=== PATIENT | female | born 1985 | race Native Hawaiian/Other Pacific Islander ===

== ENCOUNTER 2016-12-12 17:06 | Emergency (ER) | payer OTHER ==
[~2016-12-12] VITALS: Ht 167.6 cm; Wt 79.4 kg
[2016-12-12 18:24] LABS: PLATELET COUNT 266 K/uL (152-353)
[2016-12-12 18:34] LABS: POTASSIUM 3.9 mmol/L (3.6-5.2); SODIUM 136 mmol/L (136-145)
== END 2016-12-15 18:25 | disposition other institution (70) ==
LOC: ED 17:06
PROVIDERS: Emergency Medicine
DX: R45.851 Suicidal ideations (principal); F32.89 Other specified depressive episodes
CPT/HCPCS: 36415; 80053; 80307; 80320; 80329; 81000; 81025; 85027; 93005; 96372; 99285; G0479; J2060; J3410